=== PATIENT | female | born 1930 | race Caucasian/White ===

== ENCOUNTER 2017-04-16 07:00 | Emergency (ER) | payer OTHER ==
[~2017-04-16] VITALS: Ht 160 cm; Wt 56.7 kg
[2017-04-16] MEDS ORDERED: TYLENOL325 MG PO ×2 (07:05→07:06)
[2017-04-16] MEDS ORDERED: DULCOLAX5 MG PO (07:06)
[2017-04-16] MEDS ORDERED: ASPIR 8181 MG PO (07:06)
[2017-04-16] MEDS ORDERED: ARICEPT 5 MG TAB5 MG PO (07:08)
[2017-04-16] MEDS ORDERED: CLARITIN-D 241 EAC1 PO (07:08)
[2017-04-16] MEDS ORDERED: LEXAPRO20 MG PO (07:09)
[2017-04-16] MEDS ORDERED: MIRALAX17 GM PO ×2 (07:10)
[2017-04-16] MEDS ORDERED: HYDROCORTISONE3011 TOP (07:12)
[2017-04-16] MEDS ORDERED: SYNTHROID50 MCG PO (07:13)
[2017-04-16] MEDS ORDERED: MILK OF MA2400 MG/10 PO (07:14)
[2017-04-16] MEDS ORDERED: NAMENDA XR1 EACH PO (07:14)
[2017-04-16] MEDS ORDERED: OCUVITE LUTEIN1 EAC2 PO (07:15)
[2017-04-16] MEDS ORDERED: PRAVACHOL40 MG PO (07:16)
[2017-04-16] MEDS ORDERED: TRAMADOL 50 MG50 MG PO (07:17)
[2017-04-16] MEDS ORDERED: TRAZODONE HCL50 MG PO (07:17)
[2017-04-16] MEDS ORDERED: ULTRAM 50MG TAB50 MG PO (07:17)
[2017-04-16] MEDS ORDERED: B12INJ PO (07:18)
[2017-04-16 08:17] VITALS: BP 139/68
== END 2017-04-16 08:18 | disposition home or self-care (01) ==
LOC: ER 07:00
DX: S81.011A Laceration without foreign body, right knee, initial encounter (principal); Z87.891 Personal history of nicotine dependence; F03.90 Unspecified dementia, unspecified severity, without behavioral disturbance, psychotic disturbance, mood disturbance, and anxiety; W18.2XXA Fall in (into) shower or empty bathtub, initial encounter; Y93.E9 Activity, other interior property and clothing maintenance; Y92.89 Other specified places as the place of occurrence of the external cause; Y99.8 Other external cause status